=== PATIENT | female | born 1945 | race Caucasian/White ===

== ENCOUNTER 2021-03-31 15:02 | Observation (INO) ==
[2021-03-31] MEDS ORDERED: ENOXAPARIN 100 MG/ML SYRINGE SUBCUT STA (15:25)
[2021-03-31 15:39] LABS: Basophils % 0.2 % (0.0-0.8); Eosinophils # 0.1 10*3/uL (0.0-0.87); Eosinophils % 0.9 % (0.00-10.9); Hematocrit 36.8 VOL% (35.7-47.0); Hemoglobin 11.9 GM/DL (12.0-16.0); Immature Granulocytes % 0.5 %; Immature Granulocytes Absolute 0.03 #; Lymphocytes # 1.5 10*3/uL (1.4-4.0); Lymphocytes % 22.7 % (21.3-54.2); Mean Corpuscular HGB Conc 32.3 GM/DL (32-36); Mean Corpuscular Volume 93.9 FL (87-102); Mean Platelet Volume 10.6 FL (9.6-12.0); Monocytes % 6.7 % (1.7-12.7); Platelet Count 194 T/CUMM (130-400); Red Blood Count 3.92 MC/CUMM (3.8-5.5); Red Cell Distribution Width 13.7 % (9.3-17.3); White Blood Count 6.4 T/CUMM (4-12)
[2021-03-31 16:05] LABS: Albumin 3.5 G/DL (3.4-5.0); Bilirubin,Total 0.4 MG/DL (0.20-1.00); Calcium 8.8 MG/DL (8.5-10.1); Osmolality,Calculated 274.8 MOS/KG (273-304); Potassium 3.9 MMOL/L (3.5-5.1); Total Protein 6.8 G/DL (6.4-8.2)
[2021-03-31] MEDS ORDERED: NITROGLYCERIN SL 0.4 MG TABLET SL STA (16:23)
[2021-03-31] MEDS ORDERED: DOCUSATE SODIUM 100 MG CAPSULE PO PRN (16:54)
[2021-03-31] MEDS ORDERED: GLUCAGON 1 MG VIAL IM PRN (16:54)
[2021-03-31] MEDS ORDERED: ALBUTEROL 2.5 MG/3 ML NEB RESP TX PRN (16:54)
[2021-03-31] MEDS ORDERED: hydrALAZINE 20 MG/1 ML VIAL IV PRN (16:54)
[2021-03-31] MEDS ORDERED: DEXTROSE 50% 25 GM/50 ML VIAL IV PRN (16:54)
[2021-03-31] MEDS ORDERED: ONDANSETRON 4 MG/2 ML VIAL IV PRN (16:54)
[2021-03-31] MEDS ORDERED: CALCIUM CARBONATE CHEW 500 MG TABLET PO PRN (16:54)
[2021-03-31] MEDS ORDERED: ACETAMINOPHEN 325 MG TABLET PO PRN (16:54)
[2021-03-31] MEDS: ASPIRIN EC 81 MG TABLET PO SCH (21:37)
[2021-03-31] MEDS: METOPROLOL SUCCINATE XL 50 MG TABLET PO SCH (21:37)
[2021-04-01 04:50] LABS: Basophils % 0.2 % (0.0-0.8); Eosinophils # 0.1 10*3/uL (0.0-0.87); Eosinophils % 1.6 % (0.00-10.9); Hematocrit 34.4 VOL% (35.7-47.0); Hemoglobin 11.1 GM/DL (12.0-16.0); Immature Granulocytes % 0.5 %; Immature Granulocytes Absolute 0.02 #; Lymphocytes # 1.7 10*3/uL (1.4-4.0); Lymphocytes % 39.1 % (21.3-54.2); Mean Corpuscular HGB Conc 32.3 GM/DL (32-36); Mean Corpuscular Volume 94.5 FL (87-102); Mean Platelet Volume 10.9 FL (9.6-12.0); Monocytes % 8.7 % (1.7-12.7); Neutrophils % 49.9 % (38.7-73.9); Platelet Count 182 T/CUMM (130-400); Red Blood Count 3.64 MC/CUMM (3.8-5.5); Red Cell Distribution Width 13.6 % (9.3-17.3); White Blood Count 4.4 T/CUMM (4-12)
[2021-04-01 05:07] LABS: PT Patient Result 11.3 SECS (10.5-12.0); Partial Thromboplastin Time 30.2 SECS (23.8-32.1)
[2021-04-01 05:28] LABS: Osmolality,Calculated 280.3 MOS/KG (273-304); Potassium 4.1 MMOL/L (3.5-5.1); Risk Ratio 4.94; Thyroid Stimulating Hormone 6.66 uIU/ml (0.358-3.74); VLDL Cholesterol 27.8 MG/DL
[2021-04-01] MEDS ORDERED: DIAZEPAM 5 MG TABLET PO ONE (06:13)
[2021-04-01] MEDS ORDERED: diphenhydrAMINE CAP 50 MG CAPSULE PO ONE (06:13)
[2021-04-01] MEDS: PANTOPRAZOLE 40 MG TABLET PO SCH (08:05)
[2021-04-01] MEDS: SODIUM CHLORIDE 0.9% 1,000 ML IV SCH ×2 (08:05→17:40)
[2021-04-01] MEDS: VALSARTAN 160 MG TABLET PO SCH (08:08)
[2021-04-01] MEDS ORDERED: HEPARIN/NACL 0.9% 2 UNITS/ML 2,000 UNIT/1,000 ML BAG IV ONE (08:15)
[2021-04-01] MEDS ORDERED: fentaNYL 100 MCG/2 ML VIAL ONE (08:29)
[2021-04-01] MEDS ORDERED: MIDAZOLAM 2 MG/2 ML VIAL ONE (08:29)
[2021-04-01] MEDS ORDERED: ENOXAPARIN 60 MG/0.6 ML SYRINGE ONE (08:46)
[2021-04-01] MEDS ORDERED: TICAGRELOR 90 MG TABLET ONE (09:01)
[2021-04-01] MEDS: ISOSORBIDE MONONITRATE 30 MG TABLET PO SCH (10:33)
[2021-04-01] MEDS ORDERED: ENOXAPARIN 60 MG/0.6 ML SYRINGE SUBCUT SCH (15:30)
[2021-04-01] MEDS ORDERED: ENOXAPARIN 40 MG/0.4 ML SYRINGE SUBCUT SCH (15:30)
[2021-04-01] MEDS ORDERED: SIMVASTATIN 10 MG TABLET PO SCH (21:00)
[2021-04-01] MEDS: TICAGRELOR 90 MG TABLET PO SCH (21:06)
[2021-04-01] MEDS: METOPROLOL SUCCINATE XL 50 MG TABLET PO SCH (21:07)
[2021-04-01] MEDS: ASPIRIN EC 81 MG TABLET PO SCH (21:07)
[2021-04-02] MEDS: SODIUM CHLORIDE 0.9% 1,000 ML IV SCH ×2 (02:18→10:59)
[2021-04-02 04:45] LABS: Basophils % 0.2 % (0.0-0.8); Eosinophils # 0.1 10*3/uL (0.0-0.87); Eosinophils % 1.7 % (0.00-10.9); Hematocrit 30.9 VOL% (35.7-47.0); Hemoglobin 9.7 GM/DL (12.0-16.0); Immature Granulocytes % 0.3 %; Immature Granulocytes Absolute 0.02 #; Lymphocytes # 1.5 10*3/uL (1.4-4.0); Lymphocytes % 22.9 % (21.3-54.2); Mean Corpuscular HGB Conc 31.4 GM/DL (32-36); Mean Corpuscular Volume 96.3 FL (87-102); Monocytes % 7.6 % (1.7-12.7); Neutrophils % 67.3 % (38.7-73.9); Platelet Count 153 T/CUMM (130-400); Red Blood Count 3.21 MC/CUMM (3.8-5.5); Red Cell Distribution Width 14.1 % (9.3-17.3); White Blood Count 6.5 T/CUMM (4-12)
[2021-04-02 05:10] LABS: Calcium 8.3 MG/DL (8.5-10.1); Osmolality,Calculated 277.4 MOS/KG (273-304); Potassium 4.3 MMOL/L (3.5-5.1)
[2021-04-02] MEDS ORDERED: CHLORTHALIDONE 25 MG TABLET PO SCH (09:00)
[2021-04-02] MEDS: VALSARTAN 160 MG TABLET PO SCH (09:12)
[2021-04-02] MEDS: PANTOPRAZOLE 40 MG TABLET PO SCH (09:12)
[2021-04-02] MEDS: TICAGRELOR 90 MG TABLET PO SCH (09:12)
[2021-04-02] MEDS: ISOSORBIDE MONONITRATE 30 MG TABLET PO SCH (09:12)
[2021-04-02 09:32] VITALS: BP 113/56
== END 2021-04-02 13:36 | disposition home or self-care (01) ==
LOC: N.ED 15:02 → N.EDINP 15:02 → SUATTDRO 16:54 → N.TELES 18:15
PROVIDERS: ADMIT Internal Medicine Geriatric Medicine; ATTEND Internal Medicine
PROC: CLCCHCL (ICD-10-PCS; 2021-04-01 10:15)